=== PATIENT | male | born 1980 | race Caucasian/White ===

== ENCOUNTER 2018-02-21 17:39 | Emergency (ER) | payer SELFPAY | END 2018-02-21 18:59 | disposition left against medical advice (07) | LOC: FTE 17:39 | DX: Z53.21 Procedure and treatment not carried out due to patient leaving prior to being seen by health care provider (principal) ==

== ENCOUNTER 2018-02-22 06:45 | Emergency (ER) | payer BC | END 2018-02-22 07:17 | disposition home or self-care (01) | LOC: FTE 06:45 | DX: F41.9 Anxiety disorder, unspecified (principal) | CPT/HCPCS: 99283 ==